=== PATIENT | female | born 1965 | race Caucasian/White ===

== ENCOUNTER 2017-06-07 08:51 | Emergency (ER) | payer OTHER ==
--- NOTE | 2017-06-07 09:08 | EDPHY ---
H & P Stated Complaint: anxiety Time Seen by Provider: 06/07/17 09:07 HPI/ROS: CHIEF COMPLAINT: anxiety HISTORY OF PRESENT ILLNESS: 51-year-old female presents emergency department by ambulance reporting severe anxiety. Patient is in [place] going to school from [place] or again. She has been here for 2 weeks. Patient reports the program she is in is very stressful and has been causing her severe stress and anxiety over the last week. She states she has not been sleeping. This morning she became more anxious, reports she felt heavy all over her body, tingling to her hands and feet and called 911. Patient was given 2 mg of Versed EN route by EMS. Patient reports a history of anxiety. She denies chest pain, shortness of. Patient takes no medications daily. Patient reports she dropped out of her program and will be going home to [place] or again where her family is. She states she has a good support system in [place]. REVIEW OF SYSTEMS: A comprehensive 10 point review of systems is otherwise negative aside from elements mentioned in the history of present illness. Source: Patient Exam Limitations: No limitations - Personal History LMP (Females 10-55): Post Menopausal Current Tetanus Diphtheria and Acellular Pertussis (TDAP): Yes - Medical/Surgical History Hx Asthma: No Hx Chronic Respiratory Disease: No Hx Diabetes: No Hx Cardiac Disease: No Hx Renal Disease: No Hx Cirrhosis: No Hx Alcoholism: No Hx HIV/AIDS: No Hx Splenectomy or Spleen Trauma: No Other PMH: anxiety - Social History Smoking Status: Never smoked - Physical Exam Exam: Physical Exam Gen: Alert and Oriented, NAD HEENT: PERRL, moist mucous membranes NECK: no meningismus CV: regular rate and regular rhythm PULM: CTAB, no wheezes ABDOMEN: soft, non tender to palpation, BS present BACK: No CVA tenderness NEURO: Neurologically grossly intact EXTREMITIES: normal appearing SKIN: no rash or break in skin on exposed skin PSYCH: Flat affect, does not open her eyes, denies suicidal ideations, homicidal ideations, auditory and visual hallucinations. Constitutional: Initial Vital Signs Temperature (C) 37.0 C 06/07/17 09:04 Heart Rate 82 06/07/17 09:04 Respiratory Rate 14 06/07/17 09:04 Blood Pressure 127/102 H 06/07/17 09:04 O2 Sat (%) 97 06/07/17 09:04 O2 Delivery Mode Room Air Allergies/Adverse Reactions: No Known Allergies Allergy (Unverified 06/07/17 09:07) Home Medications: Medication Instructions Recorded LORazepam [Lorazepam] 0.5 - 1 mg PO Q8HRS PRN #7 tablet 06/07/17 Medical Decision Making ED Course/Re-evaluation: The patient is calm in the emergency department, she is feeling better after receiving 2 mg of Versed in the ambulance. I have discussed giving the patient a small prescription for lorazepam to take as needed. She will be discharged and is comfortable with this plan. She is given the crisis Center information if needed. Differential Diagnosis: Diagnosis considered but not limited to anxiety, electrolyte abnormality, substance abuse, conversion disorder Departure - Departure Disposition: Home, Routine, Self-Care Clinical Impression: Anxiety as acute reaction to exceptional stress Condition: Good Instructions: Anxiety (ED) Additional Instructions: Take 1 mg of lorazepam every 8 hours as needed for anxiety. Follow up with your primary care doctor upon return home to [place]. [facility] does operate a 11/06 psychiatric crisis unit located at [address] [place] [address]. The telephone number for the 24 hour crisis center is . Referrals: [facility],. [Clinic] - As per Instructions Prescriptions: LORazepam [Lorazepam] 0.5 - 1 mg PO Q8HRS PRN #7 tablet PRN Reason: Anxiety
--- NOTE | 2017-06-07 09:12 | CPEKG ---
Heart Rate: 80 RR Interval: 750 P-R Interval: 172 QRSD Interval: 94 QT Interval: 396 QTC Interval: 457 P Grampian: 69 QRS Grampian: 81 T Wave Grampian: 53 EKG Severity - NORMAL ECG - EKG Impression: SINUS RHYTHM Electronically Signed By: John Escalante 08-Jun-2017 14:16:29
[2017-06-07 10:00] VITALS: RESP 16
[2017-06-07 10:35] VITALS: BP 122/76; PULSE 81; TEMP 97.7; O2SAT 98
== END 2017-06-07 10:35 | disposition home or self-care (01) ==
DX: F41.9 Anxiety disorder, unspecified (principal); F43.0 Acute stress reaction